=== PATIENT | female | born 1970 | race Caucasian/White ===

== ENCOUNTER 2022-12-08 07:25 | Emergency (ER) | payer BC, OTHER ==
[2022-12-08] MEDS ORDERED: Albuterol/Ipratropium 3.0-0.5 MG/3 ML Neb Soln NEB ONE (07:34)
[2022-12-08 08:12] LABS: CORONAVIRUS COVID-19 NAA NEGATIVE (NEGATIVE); INFLUENZA A NAA NEGATIVE (NEGATIVE); INFLUENZA B NAA NEGATIVE (NEGATIVE)
== END 2022-12-08 08:44 | disposition home or self-care (01) ==
LOC: MW.ED 07:25
DX: J21.9 Acute bronchiolitis, unspecified (principal); Z20.822 Contact with and (suspected) exposure to COVID-19
CPT/HCPCS: 0240U; 71045; 99285; 99283; J7620-GY

== ENCOUNTER 2024-10-04 06:22 | Day surgery (SDC) | payer BC, OTHER ==
[2024-10-04] MEDS: Lactated Ringers 1,000 ML IV SCH (07:06)
[2024-10-04] MEDS: Scopalamine 1mg/3day Transdermal Patch TOP ONE (07:24)
[2024-10-04] MEDS ORDERED: propofoL 500 MG/50 ML 50 ML ONE (07:29)
[2024-10-04] MEDS ORDERED: fentaNYL 250 MCG/5 ML SDV ONE (07:30)
[2024-10-04] MEDS ORDERED: Dexamethasone 4 MG/ML 5 ML MDV ONE (07:36)
[2024-10-04] MEDS ORDERED: Ondansetron 4 MG/2 ML SDV ONE (07:36)
[2024-10-04] MEDS ORDERED: Ketorolac 30 MG/ML SDV ONE (07:36)
[2024-10-04] MEDS ORDERED: fentaNYL 50 MCG/ML SDV IVPUSH PRN (08:06)
[2024-10-04] MEDS ORDERED: Naloxone 0.4 MG/ML SDV IVPUSH PRN (08:06)
[2024-10-04] MEDS ORDERED: Albuterol 0.083% 2.5 MG/3 ML Neb Soln NEB PRN (08:06)
[2024-10-04] MEDS ORDERED: Ondansetron 4 MG/2 ML SDV IVPUSH PRN (08:06)
== END 2024-10-04 09:42 | disposition home or self-care (01) ==
LOC: MW.SDS 06:22
PROVIDERS: ATTEND Obstetrics & Gynecology
DX: N88.2 Stricture and stenosis of cervix uteri (principal); R87.612 Low grade squamous intraepithelial lesion on cytologic smear of cervix (LGSIL); E66.9 Obesity, unspecified; F17.210 Nicotine dependence, cigarettes, uncomplicated; Z68.33 Body mass index [BMI] 33.0-33.9, adult; Z79.899 Other long term (current) drug therapy
CPT/HCPCS: 57505; 58558; J1100; J1308; J1885; J2704; J3010; J7120; 00952; J2405